=== PATIENT | male | born 1965 ===

== ENCOUNTER 2023-08-11 12:29 | Emergency (ER) | payer OTHER ==
[~2023-08-11] VITALS: Ht 177.8 cm; Wt 72.7 kg
[2023-08-11 12:34] VITALS: TEMP 98.1
[2023-08-11 13:58] LABS: BASOPHILS % (AUTO) 1.2 % (0.0-2.0); EOSINOPHILS % (AUTO) 1.3 % (1.0-6.0); HEMATOCRIT 45.1 % (41-53); HEMOGLOBIN 14.9 g/dL (13.5-17.5); LYMPHOCYTES # (AUTO) 1.6 K/uL (1.0-4.8); LYMPHOCYTES % (AUTO) 32.4 % (22.0-44.0); MEAN CORPUSCULAR VOLUME 94 fL (80-100); MONOCYTES # (AUTO) 0.5 K/uL (0.1-1.0); MONOCYTES % (AUTO) 10.2 % (2.0-9.0); NEUTROPHILS # (AUTO) 2.7 K/uL (1.8-7.7); NEUTROPHILS % (AUTO) 54.9 % (40.0-70.0); PLATELET COUNT (AUTO) 260 K/uL (150-450); RED CELL DISTRIBUTION WIDTH 13.7 % (11.5-14.5); WHITE BLOOD COUNT (AUTO) 4.9 K/uL (4.5-11.0)
[2023-08-11 14:07] LABS: ANION GAP 8 mmol/L (8-16); CALCIUM, TOTAL 9.8 mg/dL (8.8-10.5); CARBON DIOXIDE 31 mmol/L (22-29); CHLORIDE 102 mmol/L (98-107); CREATININE 0.88 mg/dL (0.60-1.30); GLOMERULAR FILTR. RATE CALC > 60 mL/min (>60); GLUCOSE,RANDOM 86 mg/dL (70-110); POTASSIUM 4.2 mmol/L (3.5-5.1); SODIUM SERUM 141 mmol/L (136-145); UREA NITROGEN, BLOOD 11 mg/dL (7-18)
[2023-08-11 14:13] LABS: ALANINE AMINOTRANSFERASE 22 U/L (12-78); ALBUMIN 4.5 g/dL (3.4-5.0); ALKALINE PHOSPHATASE 131 U/L (46-116); ASPARTATE AMINOTRANSFERASE 26 U/L (15-37); BILIRUBIN,TOTAL 0.4 mg/dL (0.1-1.0)
[2023-08-11 14:18] LABS: B-TYPE NATRIURETIC PEPTIDE 6 pg/mL (0-100)
[2023-08-11] MEDS ORDERED: NAPR-1025 PO (14:51)
[2023-08-11] MEDS: KETOROLAC TROMETHAMINE 30 MG/ML VIAL IVP ONE (15:07)
[2023-08-11 15:10] LABS: TROPONIN I-HIGH SENSITIVITY 10 ng/L (<76)
[2023-08-11 15:35] VITALS: BP 136/78; PULSE 79; RESP 18
== END 2023-08-11 15:37 | disposition home or self-care (01) ==
LOC: EMS 12:31
DX: R07.89 Other chest pain (principal); Z98.890 Other specified postprocedural states
CPT/HCPCS: 99285; 96374; 71045; 80053; 83880; 84484; 85025; 36415; 93005; J1885